=== PATIENT | male | born 1975 | race Caucasian/White ===

== ENCOUNTER 2018-01-08 10:43 | Emergency (ER) | payer MEDICAID, OTHER ==
[~2018-01-08 10:43] MED LIST: ACE325 PO; ACE500 PO; AUG875 PO; BACDS PO; CALC-515 PO; CAR350 PO; CEP500 PO; CEPHALEXIN; CIT20 PO; CLO1 PO; CYC10 PO; DIA5 PO; DIVA250T33; DIVA250T84 PO; DOC100 PO; DUL30 PO; GABA-490 PO; HYD2 PO; HYDR-3250 PO; LOR1 PO; LOR10/500 PO; LOR5 PO; LOR5/325 PO; LOR75 PO; NO ROUTINE MEDS; NOR5/325 PO; OLA5 PO; OND4 PO; OXYC-689 PO; OXYC-763 PO; OXYIR PO; PER PO; PHENA200 PO; PRE10 PO; PREDNIS; PRO25 PO; QUET25TA31 PO; QUET50TA; QUET50TA21 PO; TRA50 PO; TRAZ150T8 PO; [UNRECOGNIZED DRUG - CODE] MC
[2018-01-08] MEDS ORDERED: CLON-333 PO ×2 (10:53→11:09)
[2018-01-08] MEDS ORDERED: LAMO25TA60 PO (10:53)
--- NOTE | 2018-01-08 11:01 | ER Report ---
History and Physical Time Seen By MD: 11:01 Hx. of Stated Complaint: Patient just moved back from [place]. Out of clonazepam and almost out of lamictal HPI/ROS CHIEF COMPLAINT: Medication refill for clonazepam and Lamictal HISTORY OF PRESENT ILLNESS: Patient is a 42-year-old male who recently moved back to the [facility] from [facility]. His last patient contacted [place] was in 2012. He has moved back to the to the area and has established primary care provider but has not seen them yet and will be unable to see them until January 25. He is on chronic clonazepam 1 mg twice per day. As well as Lamictal 50 mg once daily he will run out of his prescription prior to his initial evaluation on January 25. Patient does have a history of being on Hospital treatment plan list. Patient however has not been seen since 2012. In review of the [place] and [place] prescription controlled substances index reveals only 1 prescription which was dispensing of 60 tablets of 1 mg clonazepam in May 2017. Allergies: Coded Allergies: aspirin (Verified Allergy, Severe, MAKES FEVER GO HIGHER, 01/08/18) ibuprofen (Verified Allergy, Mild, 01/08/18) ketorolac (Verified Allergy, Mild, HIVES, 01/08/18) tramadol (Verified Allergy, Mild, HIVES, 01/08/18) Home Meds Active Scripts Lamotrigine (Lamotrigine (Blue)) 25 Mg (35 Tabs) Tab.ds.pk, 2 TAB PO QDAY, #1 PACK 0 Refills Prov:SOPHIE TOLEDO MD 01/08/18 Clonazepam (CLONAZEPAM) 1 Mg Tablet, 1 MG PO BID for 21 Days, #42 TAB 0 Refills Prov:SOPHIE TOLEDO MD 01/08/18 Reported Medications Lamotrigine (LAMOTRIGINE) 25 Mg Tablet, 25 MG PO DAILY 01/08/18 Clonazepam (CLONAZEPAM) 1 Mg Tablet, 1 MG PO BID, #6 TAB 01/08/18 Discontinued Reported Medications Trazodone Hcl (TRAZODONE HCL) 150 Mg Tablet, 50 - 150 MG PO QHS 11/12/12 Gabapentin (NEURONTIN) 300 Mg Capsule, 300 MG PO TID 11/12/12 Past Medical/Surgical History Anxiety Hx Smoking: Yes Exposure to Second Hand Smoke?: Yes Hx Substance Use Disorder: Yes (MARIJUANA OCC) Hx Alcohol Use: No (none for 3 years) Constitutional Vital Sign - Last 24 Hours 01/08/18 01/08/18 10:46 11:18 Temp 97.9 Pulse 72 Resp 16 B/P (MAP) 151/100 129/100 (110) Pulse Ox 98 O2 Delivery Room Air Physical Exam General appearance: Alert no distress. Respiratory: Chest is non tender, lungs are clear to auscultation. Cardiac: Regular rate and rhythm Psychiatric: No suicidal ideation, chronic anxiety Medical Decision Making ED Course/Re-evaluation ED Course 01/08/2018 11:19:33 am plan at this time will be to provide a 3 week refill of clonazepam in 2 week refill of Lamictal. This should get the patient a seven-day window to see their primary care provider. Patient was instructed that we will not refill any further controlled substances after today's date. Patient had no questions or concerns at time of disposition. Decision to Disposition Date: Jan 08, 2018 Decision to Disposition Time: 11:20 Depart Departure Latest Vital Signs Vital Signs Date Time Temp Pulse Resp B/P (MAP) Pulse Ox O2 Delivery O2 Flow Rate FiO2 01/08/18 11:18 129/100 (110) 01/08/18 10:46 97.9 72 16 98 Room Air Impression: Primary Impression: Medication refill Condition: Condition Unchanged Disposition: HOME OR SELF-CARE Referrals: TESS DOLL MD (PCP) New Scripts Lamotrigine (Lamotrigine (Blue)) 25 Mg (35 Tabs) Tab.ds.pk 2 TAB PO QDAY, #1 PACK 0 Refills Prov: SOPHIE TOLEDO MD 01/08/18 Clonazepam (CLONAZEPAM) 1 Mg Tablet 1 MG PO BID for 21 Days, #42 TAB 0 Refills Prov: SOPHIE TOLEDO MD 01/08/18 Patient Instructions: Medicine Refill (ED) Additional Instructions: This will be the only time the refill your clonazepam as it is a controlled substance. He will need to follow-up with one of his associates to get this refilled from any future date. SOPHIE TOLEDO MD Jan 08, 2018 11:01
[2018-01-08] MEDS ORDERED: LAMO25TA31 PO (11:09)
[2018-01-08 11:18] VITALS: BP 129/100
== END 2018-01-08 11:21 | disposition home or self-care (01) ==
LOC: ER 10:50
DX: Z76.0 Encounter for issue of repeat prescription (principal)
CPT/HCPCS: 99281